=== PATIENT | male | born 1980 | race Caucasian/White ===

== ENCOUNTER 2020-08-19 16:30 | Emergency (ER) | payer BC, OTHER | END 2020-08-19 18:31 | disposition home or self-care (01) | LOC: ER1 16:30 | DX: M77.9 Enthesopathy, unspecified (principal); Z87.891 Personal history of nicotine dependence | CPT/HCPCS: 29105; 73090; 73110; 99283 ==

== ENCOUNTER → 2021-10-22 | Outpatient (CLI) | payer BC | LOC: HEART 5 13:36 | DX: R06.02 Shortness of breath (principal); F17.290 Nicotine dependence, other tobacco product, uncomplicated | CPT/HCPCS: 94060; 94729 ==